=== PATIENT | female | born 1965 | race Caucasian/White ===

== ENCOUNTER 2016-07-01 11:10 | Emergency (ER) | payer MEDICAID ==
[~2016-07-01] VITALS: Ht 157.5 cm; Wt 43.6 kg
[2016-07-01 12:12] LABS: BLOOD UREA NITROGEN 14 mg/dL (7-18)
[2016-07-01 12:38] LABS: ASPARTATE AMINO TRANSFERASE 10 U/L (15-37)
[2016-07-01 13:33] VITALS: BP 93/56
== END 2016-07-01 12:16 | disposition home or self-care (01) ==
LOC: ED 11:41
DX: N83.201 Unspecified ovarian cyst, right side (principal); N95.0 Postmenopausal bleeding; F17.210 Nicotine dependence, cigarettes, uncomplicated; J44.9 Chronic obstructive pulmonary disease, unspecified; Z88.6 Allergy status to analgesic agent; Z88.8 Allergy status to other drugs, medicaments and biological substances
CPT/HCPCS: 36415; 76830; 80053; 85025

== ENCOUNTER 2017-02-20 14:15 | Emergency (ER) | payer MEDICAID ==
[~2017-02-20] VITALS: Ht 160 cm; Wt 45.6 kg
[2017-02-20 15:13] LABS: PATH.CAST-FLAG NOT PRESENT; SPERM-FLAG NOT PRESENT; SRC-FLAG NOT PRESENT; XTAL-FLAG NOT PRESENT; YLC-FLAG NOT PRESENT
[2017-02-20 15:27] LABS: HEMATOCRIT 41.1 % (34.6-47.8); WHITE BLOOD COUNT 9.5 x10^3/uL (3.4-10)
[2017-02-20 15:39] LABS: ASPARTATE AMINO TRANSFERASE 12 U/L (15-37); BLOOD UREA NITROGEN 16 mg/dL (7-18)
[2017-02-20 16:20] VITALS: BP 114/76
== END 2017-02-20 17:34 | disposition home or self-care (01) ==
LOC: ED 17:30
DX: S39.011A Strain of muscle, fascia and tendon of abdomen, initial encounter (principal); X58.XXXA Exposure to other specified factors, initial encounter; Y93.89 Activity, other specified; Y99.8 Other external cause status; Y92.89 Other specified places as the place of occurrence of the external cause
CPT/HCPCS: 36415; 71020; 76700; 80053; 81001; 83690; 85025; 99285

== ENCOUNTER 2017-04-11 11:34 | Emergency (ER) | payer MEDICAID ==
[~2017-04-11] VITALS: Ht 157.5 cm; Wt 45.9 kg
[2017-04-11 11:38] VITALS: BP 126/72
[2017-04-11] MEDS ORDERED: KETOROLAC 30 MG/1 ML ONE (12:14)
[2017-04-11] MEDS ORDERED: KETOROLAC 30 MG/1 ML IM ONE (12:30)
== END 2017-04-11 13:12 | disposition home or self-care (01) ==
LOC: ED 12:45
DX: S32.2XXA Fracture of coccyx, initial encounter for closed fracture (principal); J44.9 Chronic obstructive pulmonary disease, unspecified; N18.9 Chronic kidney disease, unspecified; F17.200 Nicotine dependence, unspecified, uncomplicated; W00.0XXA Fall on same level due to ice and snow, initial encounter; Y93.21 Activity, ice skating; Y92.39 Other specified sports and athletic area as the place of occurrence of the external cause; Y99.8 Other external cause status; Z90.49 Acquired absence of other specified parts of digestive tract; Z90.710 Acquired absence of both cervix and uterus; Z88.1 Allergy status to other antibiotic agents; Z88.5 Allergy status to narcotic agent; Z88.8 Allergy status to other drugs, medicaments and biological substances
CPT/HCPCS: 72220; 96372; 99284; J1885

== ENCOUNTER 2017-04-15 13:48 | Emergency (ER) | payer MEDICAID ==
[~2017-04-15] VITALS: Ht 160 cm; Wt 46.0 kg
[2017-04-15] MEDS ORDERED: ONDANSETRON 2MG/ML, 2ML IVPush ONE (16:30)
[2017-04-15] MEDS ORDERED: SODIUM CHLORIDE FLUSH 10ML SYR IVF ONE (16:30)
[2017-04-15] MEDS ORDERED: MORPHINE SULFATE 4 MG/ML, 1ML IVPush PRN (16:30)
[2017-04-15] MEDS ORDERED: ONDANSETRON 2MG/ML, 2ML ONE (16:51)
[2017-04-15] MEDS ORDERED: MORPHINE SULFATE 4 MG/ML, 1ML ONE (16:51)
[2017-04-15 16:59] LABS: BASOPHILS # (AUTO) 0.07 x10^3/uL (0-0.1); BASOPHILS % (AUTO) 1 % (0-1); EOSINOPHILS # (AUTO) 0.28 x10^3/uL (0-0.4); EOSINOPHILS % (AUTO) 3 % (1-7); LYMPHOCYTES # (AUTO) 3.58 x10^3/uL (1-3.4); LYMPHOCYTES % (AUTO) 35 % (22-44); MD NO; MEAN CORPUSCULAR HEMOGLOBIN 30.8 pg (27.0-34.8); MEAN CORPUSCULAR HGB CONC 33.8 g/dL (32.4-35.8); MEAN CORPUSCULAR VOLUME 91.1 fL (80-100); MEAN PLATELET VOLUME 8.3 fL (7.4-10.4); MONOCYTES % (AUTO) 10 % (2-9); NEUTROPHILS % (AUTO) 52 % (42-75); PLATELET COUNT 328 x10^3/uL (130-400); RED BLOOD COUNT 4.49 x10^6/uL (3.82-5.3); RED CELL DISTRIBUTION WIDTH 14.2 % (9.6-15.2)
[2017-04-15 17:07] LABS: ALANINE AMINOTRANSFERASE 16 U/L (12-78); ALBUMIN 3.7 g/dL (3.4-5.0); ANION GAP 7 mmol/L (5-15); CALCIUM 8.4 mg/dL (8.5-10.1); CHLORIDE 107 mmol/L (98-107)
[2017-04-15 17:10] LABS: ALKALINE PHOSPHATASE 70 U/L (45-117); BILIRUBIN,TOTAL 0.6 mg/dL (0.2-1.0); TOTAL PROTEIN 7.2 g/dL (6.4-8.2)
[2017-04-15] MEDS ORDERED: GADOBUTROL 7.5 MMOL/7.5 ML PFS ONE (17:28)
[2017-04-15 17:59] VITALS: BP 121/76
== END 2017-04-15 18:59 | disposition home or self-care (01) ==
LOC: ED 16:29
DX: S32.10XA Unspecified fracture of sacrum, initial encounter for closed fracture (principal); J44.9 Chronic obstructive pulmonary disease, unspecified; Z90.710 Acquired absence of both cervix and uterus; Z90.49 Acquired absence of other specified parts of digestive tract; F17.200 Nicotine dependence, unspecified, uncomplicated; V00.211A Fall from ice-skates, initial encounter; Y93.21 Activity, ice skating; Y99.8 Other external cause status; Y92.89 Other specified places as the place of occurrence of the external cause
CPT/HCPCS: 36415; 72158; 80053; 85025; 96374; 96375; 99285; A9585; J2405